=== PATIENT | female | born 1950 | race Caucasian/White ===

== ENCOUNTER → 2016-05-01 | Outpatient (CLI) | payer OTHER ==
[~2016-05-01] MED LIST: ASPI81TA28 PO; CHOL100010 PO; LSN/10125 PO; MULT-506 PO; VITACAP26 PO
[2016-05-01 12:49] LABS: BLOOD UREA NITROGEN 15 mg/dl (7-18); BUN/CREATININE RATIO 18.8 (10-20); CALCIUM 9.1 mg/dl (8.5-10.1); CARBON DIOXIDE 27 mmol/L (21-32); CHLORIDE 105 mmol/L (98-107); GLUCOSE 93 mg/dl (70-99); POTASSIUM 3.8 mmol/L (3.5-5.1); SODIUM 139 mmol/L (136-145)
== END | disposition home or self-care (01) ==
LOC: C.LAB1850 11:00
PROVIDERS: ATTEND Internal Medicine
DX: Z00.00 Encounter for general adult medical examination without abnormal findings (principal); Z11.59 Encounter for screening for other viral diseases; I10 Essential (primary) hypertension

== ENCOUNTER → 2016-05-28 | Outpatient (CLI) | payer OTHER ==
--- NOTE | 2016-05-28 16:38 | MAMMOGRAPHY REPORT ---
BILATERAL DIGITAL SCREENING MAMMOGRAM TOMOSYNTHESIS WITH CAD: 05/28/2016 CLINICAL HISTORY: Routine screening evaluation. At the time of this exam, the patient reported a sm all itchy red area medial to the right nipple for 2 months, to our lead cytogenetic technologist. TECHNIQUE: Bilateral breast tomosynthesis in addition to standard 2D mammography was performed. Curr ent study was also evaluated with a Computer Aided Detection (CAD) system. COMPARISON: Comparison is made to exams dated: 12/12/2015 mammogram, 06/07/2015 mammogram, 05/26/2015 mammogram, 02/16/2014 mammogram - [facility], and 05/30/2012 mammogram. BREAST COMPOSITION: There are scattered areas of fibroglandular density in both breasts. FINDINGS: There are diffuse bilateral round and punctate microcalcifications, which are stable nuvia red to prior exams. There are also clusters of faint punctate microcalcifications in the upper oute r anterior right breast and upper outer posterior right breast that appear stable based on the full field views dating back to 2015, and the anterior cluster of microcalcifications does not appear sig nificantly changed based on the spot magnification views dating back to 05/23/2009, therefore most l ikely benign. No new suspicious mass, architectural distortion or cluster of microcalcifications is seen bilaterally. IMPRESSION: ACR BI-RADS CATEGORY 1: NEGATIVE 1. Stable bilateral mammograms, without mammographic evidence of malignancy. A 1 year screening radha mogram is recommended. 2. Clinical follow-up is recommended for the reported itchy red lesion near the right nipple, which the patient reported at the time of the exam. The patient will receive written notification of the results. Approximately 10% of breast cancers are not detected with mammography. A negative mammographic repor t should not delay biopsy if a clinically suggestive mass is present. Stefany Murry M.D. ay/:05/28/2016 15:42:55 Vest Front Presser: Sarah HOBBS)(Bob), [facility] letter sent: Normal 1/2 BI-RADS Code: ACR BI-RADS Category 1: Negative
== END | disposition home or self-care (01) ==
LOC: C.MAMM 13:49
PROVIDERS: ATTEND Obstetrics & Gynecology
DX: Z12.31 Encounter for screening mammogram for malignant neoplasm of breast (principal)

== ENCOUNTER → 2016-09-12 | Outpatient (CLI) | payer OTHER | END | disposition home or self-care (01) | LOC: C.PAPS 17:17 | PROVIDERS: ATTEND Obstetrics & Gynecology | DX: Z12.4 Encounter for screening for malignant neoplasm of cervix (principal) ==

== ENCOUNTER → 2017-01-10 | Outpatient (CLI) | payer OTHER ==
[2017-01-10 10:10] LABS: ALT/SGPT 29 U/L (12-78); AST/SGOT 17 U/L (15-37); BLOOD UREA NITROGEN 16 mg/dl (7-18); BUN/CREATININE RATIO 22.4 (10-20); CARBON DIOXIDE 23 mmol/L (21-32); CHLORIDE 107 mmol/L (98-107); CREATININE 0.74 mg/dl (0.60-1.20); GLUCOSE 109 mg/dl (70-99); HDL CHOLESTEROL 34 mg/dl; SODIUM 138 mmol/L (136-145)
[2017-01-10 10:12] LABS: ALB/GLOB RATIO 0.9 (0.9-2); ALKALINE PHOSPHATASE 96 U/L (45-117); CHOLESTEROL 195 mg/dl (0-200); CHOLESTEROL/HDL RATIO 5.7; LDL CHOLESTEROL CALCULATED 130 mg/dl; TRIGLYCERIDES 157 mg/dl (0-150); VERY LOW DENSITY LIPOPROT CALC 31 mg/dl
== END | disposition home or self-care (01) ==
LOC: C.LAB1850 08:01
PROVIDERS: ATTEND Internal Medicine
DX: I10 Essential (primary) hypertension (principal)

== ENCOUNTER → 2017-05-07 | Outpatient (CLI) | payer OTHER ==
[2017-05-07 10:29] LABS: HEMOGLOBIN A1C 5.7 % (4.5-5.6)
[2017-05-07 10:44] LABS: BLOOD UREA NITROGEN 18 mg/dl (7-18); CALCIUM 9.5 mg/dl (8.5-10.1); CARBON DIOXIDE 23 mmol/L (21-32); CREATININE 0.77 mg/dl (0.60-1.20); GLUCOSE 108 mg/dl (70-99); SODIUM 139 mmol/L (136-145)
== END | disposition home or self-care (01) ==
LOC: C.LAB1850 09:08
PROVIDERS: ATTEND Internal Medicine
DX: I10 Essential (primary) hypertension (principal); R73.01 Impaired fasting glucose

== ENCOUNTER → 2017-07-16 | Outpatient (CLI) | payer OTHER ==
--- NOTE | 2017-07-17 14:20 | MAMMOGRAPHY REPORT ---
BILATERAL DIGITAL SCREENING MAMMOGRAM TOMOSYNTHESIS WITH CAD: 07/16/2017 CLINICAL HISTORY: Routine screening. Patient has no complaints. TECHNIQUE: Breast tomosynthesis in addition to standard 2D mammography was performed. Current study was also evaluated with a Computer Aided Detection (CAD) system. COMPARISON: Comparison is made to exams dated: 05/28/2016 mammogram, 12/12/2015 mammogram, 06/07/2015 m ammogram, 05/26/2015 mammogram, 02/16/2014 mammogram - [facility], and 05/30/2012 mamm ogram. BREAST COMPOSITION: There are scattered areas of fibroglandular density in both breasts. FINDINGS: There is a 6 mm focal asymmetry in the upper outer posterior right breast, for which addit ional spot compression tomosynthesis views and possible ultrasound are recommended. There are stable faint grouped punctate microcalcifications in the anterior right breast and other sc attered stable benign-appearing round and punctate microcalcifications bilaterally. No other suspici ous mass, architectural distortion or cluster of microcalcifications is seen. IMPRESSION: ACR BI-RADS CATEGORY 0: INCOMPLETE EVALUATION: NEED ADDITIONAL IMAGING EVALUATION The 6 mm focal asymmetry in the upper outer posterior right breast needs additional evaluation. The patient will be called to schedule an appointment. Approximately 10% of breast cancers are not detected with mammography. A negative mammographic report should not delay biopsy if a clinically suggestive mass is present. Stefany Murry M.D. ay/:07/16/2017 16:42:10 Motion Picture Photographer: Leana LINDSAY(Tyson)(Bob), [facility] letter sent: Addl Imaging 0 BI-RADS Code: ACR BI-RADS Category 0: Incomplete Evaluation: Need Additional Imaging Evaluation
== END | disposition home or self-care (01) ==
LOC: C.MAMM 09:23
PROVIDERS: ATTEND Obstetrics & Gynecology
DX: Z12.31 Encounter for screening mammogram for malignant neoplasm of breast (principal); N64.89 Other specified disorders of breast

== ENCOUNTER 2020-04-08 11:21 | Observation (INO) ==
--- NOTE | 2020-04-08 12:11 | Emergency Department Note ---
History of Present Illness General Chief complaint: Cardiac Assessment Stated complaint: DOC SENT EKG ABNORMAL LOW HEART RATE Time Seen by Provider: 04/08/20 11:51 Source: patient Mode of arrival: ambulatory Limitations: no limitations History of Present Illness Provider complaint: Fatigue, dyspnea with exertion, low heart rate Onset (ago): week(s) 1 Pain Consistency: + intermittent Exacerbated By: + movement Associated symptoms: + malaise and + shortness of breath; no chest pain, no fever/chills, no nausea/vomiting and no syncope This is a 69-year-old female presents to the emergency department after being referred from her doctor's office due to an abnormal EKG. Patient found to be significantly bradycardic with concern for possible heart block. Patient states over the course of the last week she had noticed that she was more winded with any exertion and more fatigued than usual. Patient states she originally called the doctor's office last weekend for an evaluation however they were concerned about Covid and required her to have a negative Covid test before they would see her in the office. Patient states she was monitoring her heart rate and blood pressure at home, and found that her heart rate was frequently down in the 40s. Patient denies any prior cardiac history, and no prior cardiac evaluation. Patient does not routinely see cardiology. Patient states she takes lisinopril and HCTZ for blood pressure, denies any use of beta-blockers or calcium channel blockers. Patient denies any other recent illness or change in diet or activity. Patient denies any prior history of palpitations or irregular heartbeat. Patient states she is still taking medication related to a prior diagnosis of breast cancer following her lumpectomy. Pt seen during a time of high acuity and national emergency pandemic while wearing PPE. Home Medications Medication Instructions Recorded Confirmed Type anastrozole 1 mg tablet 1 mg PO QAM 01/03/18 04/08/20 History calcium carbonate-vitamin D3 600 1 tab PO QAM tab 07/09/18 04/08/20 History mg(1,500 mg)-400 unit chewable tablet ascorbate calcium (vitamin C) 500 mg PO QAM 12/02/19 04/08/20 History aspirin [Adult Low Dose Aspirin] 81 mg PO QAM 12/02/19 04/08/20 History cholecalciferol (vitamin D3) 2,000 units PO QAM 12/02/19 04/08/20 History lisinopril-hydrochlorothiazide 1 tab PO QAM 12/02/19 04/08/20 History multivitamin with iron-mineral 1 tab PO QAM 12/02/19 04/08/20 History zinc 50 mg PO QAM 12/02/19 04/08/20 History Allergies Allergy/AdvReac Type Severity Reaction Status Date / Time amlodipine AdvReac Intermediate LE Verified 04/08/20 14:02 swelling Past Med/Surg History Medical History Cervical lymphadenopathy Dry cough Encounter for health maintenance examination Endometrial mass uterine fibroids History of kidney stones History of right breast cancer 2018 diagnosed--sx/radiation/oral chemo Hypertension Left humeral fracture Nausea and vomiting after administration of anesthetic agent Nephrolithiasis Osteoarthritis Patient on radiotherapy regimen Sigmoid diverticulum Thickened endometrium Surgical History H/O oral surgery dental implant History of colonoscopy History of lumpectomy of right breast 2018 History of repair of anterior cruciate ligament of right knee History of right breast biopsy malignant History of wisdom tooth extraction S/P dilation and curettage S/P tonsillectomy Family History Brother Hypertension Sister Hypertension Father Hypertension Family/Other Hypertension Other No family history of adverse response to anesthesia Denies family history of Ovarian cancer Myocardial infarction Breast cancer Colorectal cancer Social History Smoking Status: Never smoker Second Hand Exposure: No; Hx Alcohol Use: Yes Alcohol type: beer and wine Alcohol Intake Frequency: 2-4 x/Month Hx Substance Use: No Preferred Language: Hungarian Communication Ability: Effective Visual Impairment: No Limitations Hearing Ability: Normal Parking Supervisor Required: No Beliefs That Will Affect Care: None marital status: Current Living Situation: Spouse 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 and A total of 10 systems reviewed and were otherwise negative Physical Exam Vital Signs Vital Signs - 24 hr 04/08/20 11:28 04/08/20 11:39 Temperature 36.2 C L Temperature Source Temporal Artery Scan Pulse Rate 43 L Pulse Rhythm Regular Pulse Strength Normal Respiratory Rate 20 Respiratory Effort / Characteristics Non-Labored Spontaneous Respiratory Depth Normal Respiratory Pattern Regular Blood Pressure 148/72 H Blood Pressure Mean 97 Blood Pressure Position Sitting Pulse Oximetry 95 98 Oxygen Delivery Method Room Air Room Air Sepsis Recent Fever Within 48 Hours No Sepsis New/Unexplained Change in Mental Status No Sepsis Action Taken by Nursing No Action Required GENERAL: alert, well appearing, well nourished, no distress, non-toxic EYE EXAM: normal conjunctiva, PERRL and EOM's grossly intact OROPHARYNX: no exudate, no erythema, lips, buccal mucosa, and tongue normal and mucous membranes are moist NECK: supple, no nuchal rigidity, no adenopathy, non-tender LUNGS: Clear to auscultation. Normal chest wall mechanics, no w/r/r HEART: no murmurs, S1 normal and S2 normal ABDOMEN: abdomen soft, non-tender, normo-active bowel sounds, no masses, no rebound or guarding. BACK: Back is symmetrical on inspection and there is no deformity, no midline tenderness, no CVA tenderness. SKIN: no rashes and no bruising UPPER EXTREMITIES: upper extremities are grossly normal. FROM, nml pulses b/l. LOWER EXTREMITIES: No pitting edema. FROM, nml pulses b/l. NEURO EXAM: Normal sensorium, cranial nerves II-XII grossly intact, normal sp eech, no gross weakness of arms, no gross weakness of legs. Gross sensation intact. Course Course 1207: Case discussed with Dr. Abarca who is in the emergency department evaluating another patient as well as Dr. Conner. Dr. Abarca was aware that this patient was being sent in from the office. 1250: Pt stable, being evaluated by Dr. Conner. Repeat EKG shown to Dr. Abarca given HR 44 and appearance of 3rd degree heart block. 1311: Pt evalutaed by Dr. Abarca. Administered Medications Discontinued Medications Acetaminophen (Acetaminophen 325 Mg Tab) 650 mg PO Q4H PRN PRN Reason: Mild pain (rating 1,2,3) Stop: 05/08/20 17:41 Last Admin: 04/09/20 03:13 Dose: 650 mg Documented by: [id number] Admin: 04/08/20 20:34 Dose: 650 mg Documented by: [id number] Anastrozole (Anastrozole 1 Mg Tab) [address] [facility] Stop: 05/09/20 08:59 Last Admin: 04/09/20 09:25 Dose: 1 mg Documented by: [id number] Cosigned by: [id number] Aspirin (Aspirin 81 Mg Ectab) [address] [facility] Stop: 05/09/20 08:59 Last Admin: 04/09/20 09:25 Dose: 81 mg Documented by: [id number] Bacitracin (Bacitracin Inj 50,000 Unit Vial) Confirm Administered Dose 50,000 units .ROUTE .STK-MED ONE Stop: 04/08/20 16:37 Last Admin: 04/08/20 17:31 Dose: 50,000 units Documented by: [id number] Bacitracin (Bacitracin Inj 50,000 Unit Vial) Confirm Administered Dose 50,000 units .ROUTE .STK-MED ONE Stop: 04/08/20 16:40 Last Admin: 04/08/20 17:43 Dose: 50,000 units Documented by: [id number] Bacitracin (Bacitracin Oint 0.9 Gm Pkt) Confirm Administered Dose 1 appln .ROUTE .STK-MED ONE Stop: 04/08/20 17:30 Last Admin: 04/08/20 17:43 Dose: 1 appln Documented by: [id number] Cefazolin Sodium (Cefazolin 250 Mg/Ml 1 Gm Vial) 2,000 mg IV [email or web address]; Protocol Stop: 04/08/20 19:00 Last Admin: 04/08/20 17:31 Dose: 2,000 mg Documented by: [id number] Cefazolin Sodium (Cefazolin 250 Mg/Ml 1 Gm Vial) Confirm Administered Dose 2,000 mg .ROUTE .STK-MED ONE Stop: 04/08/20 16:11 Last Admin: 04/08/20 17:31 Dose: Not Given Documented by: [id number] Fentanyl Citrate (Fentanyl Citrate 100 Mcg/2 Ml Vial) Confirm Administered Dose 100 mcg .ROUTE .STK-MED ONE Stop: 04/08/20 16:11 Last Admin: 04/08/20 17:31 Dose: 100 mcg Documented by: [id number] Heparin Sodium (Porcine) (Heparin Sod 5,000 Unit/0.5 Ml Vial) 5,000 units SQ Q12 [facility] Stop: 05/08/20 20:59 Last Admin: 04/09/20 09:25 Dose: 5,000 units Documented by: [id number] Admin: 04/08/20 21:14 Dose: 5,000 units Documented by: [id number] Sodium Chloride (Nss 1000ml) 1,000 mls @ 125 mls/hr IV .Q8H [facility] Stop: 05/08/20 12:14 Last Infusion: 04/08/20 16:00 Dose: 0 mls/hr Documented by: [id number] Admin: 04/08/20 12:08 Dose: 125 mls/hr Documented by: [id number] Lactated Ringer's (Lr) 1,000 mls @ 15 mls/hr IV .Q24H [facility] Stop: 04/11/20 08:39 Last Admin: 04/08/20 18:24 Dose: Not Given Documented by: [id number] Lidocaine HCl (Lidocaine Hcl 1% 20 Ml Vial) Confirm Administered Dose 40 ml .ROUTE .STK-MED [facility] Stop: 04/08/20 16:37 Last Admin: 04/08/20 17:43 Dose: 40 ml Documented by: [id number] Midazolam HCl (Midazolam Hcl 5 Mg/Ml 1 Ml Vial) Confirm Administered Dose 5 mg .ROUTE .STK-MED ONE Stop: 04/08/20 16:11 Last Admin: 04/08/20 17:31 Dose: 5 mg Documented by: [id number] Multivitamins (Multivitamin Tab) 1 tab PO QAM [facility] Stop: 05/09/20 08:59 Last Admin: 04/09/20 09:25 Dose: 1 tab Documented by: [id number] Critical Care Time Critical Care Time: Yes Total Critical Care Time: 35 Critical care of 35 min performed to assess and manage high likelihood of life- threatening dyrhythmia, involving labs and imaging performed with assessment to evaluate dysrhythmia diagnosis with frequent reassessment. This time includes bedside time, treatment discussions with patient/family/consultants, do cumentation time and excludes procedure time. Medical Decision Making Differential Diagnosis Differential diagnoses includes but is not limited to pneumonia, bronchitis, COPD/Asthma exacerbation, pneumothorax, pulmonary embolism, congestive heart failure, acute coronary syndrome Medical Records Attestation: I reviewed the patient's medical records. Home Medications Current Medication List: was personally reviewed by me Laboratory Data Attestation: I reviewed the patient's lab results. Result diagrams: 04/08/20 11:42 04/09/20 06:08 Lab Results 04/08/20 04/08/20 04/08/20 Range/Units 11:42 11:42 11:42 WBC 13.46 H (4.8-10.8) K/uL RBC 4.71 (4.2-5.4) M/uL Hgb 14.4 (12.0-16.0) g/dL Hct 42.4 (37-47) % MCV 90.0 (80-100) fL MCH 30.6 (25-34) pg MCHC 34.0 (32-36) g/dL RDW Std Deviation 42.5 (36.4-46.3) fL RDW Coeff of Shamika 13.0 (11.5-14.5) % Plt Count 260 (130-400) K/uL MPV 11.1 H (7.4-10.4) fL Immature Gran % (Auto) 0.6 % Neut % (Auto) 75.4 % Lymph % (Auto) 14.6 % [place] % (Auto) 8.1 % Eos % (Auto) 1.1 % Baso % (Auto) 0.2 % Neut # (Auto) 10.15 H (1.4-6.5) K/uL Lymph # (Auto) 1.96 (1.2-3.4) K/uL [place] # (Auto) 1.09 H (0.11-0.59) K/uL Eos # (Auto) 0.15 (0-0.5) K/uL Baso # (Auto) 0.03 (0-0.2) K/uL Immature Gran # (Auto) 0.08 H (0.00-0.02) K/uL PT 10.3 (9.0-12.0) Seconds INR 1.0 (0.9-1.1) Sodium 140 (136-145) mmol/L Potassium 4.1 (3.5-5.1) mmol/L Chloride 107 (98-107) mmol/L Carbon Dioxide 23 (21-32) mmol/L Anion Gap 9.0 (3-11) BUN 19 H (7-18) mg/dl Creatinine 1.00 (0.6-1.2) mg/dl Est Cr Clr Drug Dosing 59.2 ml/min Est GFR ( Amer) 67.5 Est GFR (Non-Af Amer) 58.3 BUN/Creatinine Ratio 19.2 (10-20) Glucose 123 H (70-99) mg/dl Calcium 9.7 (8.5-10.1) mg/dl Magnesium 2.3 (1.8-2.4) mg/dl Total Bilirubin 0.4 (0.2-1) mg/dl AST 27 (15-37) U/L ALT 60 (12-78) U/L Alkaline Phosphatase 116 (45-117) U/L Troponin I 0.024 (0-0.045) ng/ml NT-Pro-B Natriuret Pep 2105 H (0-900) pg/ml Total Protein 7.8 (6.4-8.2) gm/dl Albumin 3.9 (3.4-5.0) gm/dl Globulin 3.9 (2.5-4.0) gm/dl Albumin/Globulin Ratio 1.0 (0.9-2) TSH 2.070 (0.300-4.500) uIu/ml Specimen Hemolysis Lyme Disease IgG Ab (Negative) Lyme Disease IgM Ab (Negative) COVID-19 Eval Order SARS-CoV-2, RNA, NAAT (NEGATIVE) 04/08/20 04/08/20 04/08/20 Range/Units 11:42 12:43 12:43 WBC (4.8-10.8) K/uL RBC (4.2-5.4) M/uL Hgb (12.0-16.0) g/dL Hct (37-47) % MCV (80-100) fL MCH (25-34) pg MCHC (32-36) g/dL RDW Std Deviation (36.4-46.3) fL RDW Coeff of Shamika (11.5-14.5) % Plt Count (130-400) K/uL MPV (7.4-10.4) fL Immature Gran % (Auto) % Neut % (Auto) % Lymph % (Auto) % [place] % (Auto) % Eos % (Auto) % Baso % (Auto) % Neut # (Auto) (1.4-6.5) K/uL Lymph # (Auto) (1.2-3.4) K/uL [place] # (Auto) (0.11-0.59) K/uL Eos # (Auto) (0-0.5) K/uL Baso # (Auto) (0-0.2) K/uL Immature Gran # (Auto) (0.00-0.02) K/uL PT (9.0-12.0) Seconds INR (0.9-1.1) Sodium (136-145) mmol/L Potassium (3.5-5.1) mmol/L Chloride (98-107) mmol/L Carbon Dioxide (21-32) mmol/L Anion Gap (3-11) BUN (7-18) mg/dl Creatinine (0.6-1.2) mg/dl Est Cr Clr Drug Dosing ml/min Est GFR ( Amer) Est GFR (Non-Af Amer) BUN/Creatinine Ratio (10-20) Glucose (70-99) mg/dl Calcium (8.5-10.1) mg/dl Magnesium (1.8-2.4) mg/dl Total Bilirubin (0.2-1) mg/dl AST (15-37) U/L ALT (12-78) U/L Alkaline Phosphatase (45-117) U/L Troponin I (0-0.045) ng/ml NT-Pro-B Natriuret Pep (0-900) pg/ml Total Protein (6.4-8.2) gm/dl Albumin (3.4-5.0) gm/dl Globulin (2.5-4.0) gm/dl Albumin/Globulin Ratio (0.9-2) TSH (0.300-4.500) uIu/ml Specimen Hemolysis Lyme Disease IgG Ab Negative (Negative) Lyme Disease IgM Ab Negative (Negative) COVID-19 Eval Order Covid19 [email or web address] SARS-CoV-2, RNA, NAAT NEGATIVE (NEGATIVE) ECG Data Attestation: I personally reviewed and interpreted this ECG as follows: Indication: + SOB/dyspnea Rate (beats per minute): 72 ECG Intervals/blocks: + Complete heart block, + Normal QRS and + Normal QT ECG ST segments: + Nonspecific ST abnormalities ECG Findings: + PVCs Blood Pressure Blood Pressure Findings: Elevated blood pressure Blood Pressure Disposition: further management by hospitalist MDM Narrative This is a 69 yo sent in for evaluation after having increased SOB, dizziness, and fatigue over the last week and finally able to be seen by her PCP. After she had an abnormal EKG in the office she was sent to the ER. Outpatient ekg's suggestive of completely heart block, initial ER ekg with higher rate and different appearance. Case discussed with cardiology and reviewed EKG's with them after initial evaluation. BP stable. Pt asymptomatic at rest. Labs drawn and sent. Hospitalist also made aware. Repeat EKG more similar to outpt and shows complete heart block. Pt made aware of all results and need for urgent cardiology evaluation. I do not suspect infectious etiology or acute metabolic derangement at this time. An order was placed for continuous cardiac monitoring. The monitor shows a rate of _44_ with _completely heart block_ rhythm. Impression & Plan LAGUNAS (dyspnea on exertion), Dizziness, CHB (complete heart block) Discharge Plan Visit Data Chief Complaint: Cardiac Assessment Stated Complaint: DOC SENT EKG ABNORMAL LOW HEART RATE ED Provider: Donna Bajwa Discharge Problem: [place]S (dyspnea on exertion), Dizziness, CHB (complete heart block) Patient Disposition: Admitted As Inpatient Discharge Instructions Interventions: ED Discharge Assessment Last Done: 04/08/20 15:35
[2020-04-08] MEDS ORDERED: SODIUM CHLORIDE 0.9% 1000ML 1,000 ML IV SCH (12:15)
[2020-04-08 12:16] LABS: Basophils # (auto) 0.03 K/uL (0-0.2); Basophils % (auto) 0.2 %; Eosinophils # (auto) 0.15 K/uL (0-0.5); Eosinophils % (auto) 1.1 %; Hematocrit (blood only) 42.4 % (37-47); Hemoglobin 14.4 g/dL (12.0-16.0); Immature Granulocytes # (auto) 0.08 K/uL (0.00-0.02); Immature Granulocytes % (auto) 0.6 %; Lymphocytes # (auto) 1.96 K/uL (1.2-3.4); Lymphocytes % (auto) 14.6 %; Mean Corpuscular Hemoglobin 30.6 pg (25-34); Mean Platelet Volume 11.1 fL (7.4-10.4); Monocytes # (auto) 1.09 K/uL (0.11-0.59); Monocytes % (auto) 8.1 %; Neutrophils # (auto) 10.15 K/uL (1.4-6.5); Neutrophils % (auto) 75.4 %; Platelet Count 260 K/uL (130-400); RDW Standard Deviation 42.5 fL (36.4-46.3); Red Blood Count 4.71 M/uL (4.2-5.4); White Blood Count 13.46 K/uL (4.8-10.8)
--- NOTE | 2020-04-08 12:19 | History & Physical Report ---
Date of Service April 08, 2020 Assessment & Plan (1) Bradycardia: Patient has symptomatic bradycardia with dyspnea. Patient has a slow ventricular rate at times with bigeminy however it does look like she has occasional P waves without resultant QRS complexes so a type II heart block not appear to be Wenke Claude so we will call this Luis F 2 at this time. This is however being evaluated by electrophysiology. Patient has an echocardiogram pending as well as currently pending Lyme and TSH. Her last TSH was checked in June 2019 and was normal. (2) Malignant neoplasm of upper-outer quadrant of right breast in female, estrogen receptor positive: Patient is on anastrozole for continued treatment of her breast cancer there is no adverse drug reaction is for heart block listed for this medication (3) Hypertension: Typically on lisinopril hydrochlorothiazide these are held at this time it is unclear whether her blood pressure will be affected by her bradycardia. If need be we can add back lisinopril or another antihypertensive medication (4) Impaired fasting glucose: Impaired fasting glucose is listed as one of her problems she did have a hemoglobin A1c in June 2019 at 5.7 we will have her on a heart healthy diet and only employ glucose control if her glucoses are elevated on serology (5) DVT prophylaxis: Heparin is used for DVT prophylaxis in case procedure is warranted. Given the fact that she is a history of malignancy she is a slightly high risk for VTE History of Present Illness Primary Care Provider: Natasha Melchor MD 69-year-old female presents to the emergency department after being referred fr om her doctor's office due to an abnormal EKG. Patient found to be significantly bradycardic with concern for possible heart block. Patient states over the course of the last week she had noticed that she was more winded with any exertion and more fatigued than usual. Patient states she originally called the doctor's office last weekend for an evaluation however they were concerned about Covid and required her to have a negative Covid test before they would see her in the office. Covid test was negative 03/28/20. Patient states she was monitoring her heart rate and blood pressure at home, and found that her heart rate was frequently down in the 40s. Patient denies any prior cardiac history, and no prior cardiac evaluation. Patient does not routinely see cardiology. Patient states she takes lisinopril and HCTZ for blood pressure, denies any use of beta-blockers or calcium channel blockers. Patient denies any other recent illness or change in diet or activity. Patient denies any prior history of palpitations or irregular heartbeat. Patient states she is still taking medication related to a prior diagnosis of breast cancer following her lumpectomy, anastrozole, however heart block is not listed as possible adverse reaction for this medication Allergies Allergy/AdvReac Type Severity Reaction Status Date / Time amlodipine AdvReac Intermediate LE Verified 04/08/20 09:20 swelling Home Medications Medication Instructions Recorded Confirmed Type anastrozole 1 mg tablet 1 mg PO QAM 01/03/18 04/08/20 History calcium carbonate-vitamin D3 600 1 tab PO QAM tab 07/09/18 04/08/20 History mg(1,500 mg)-400 unit chewable tablet ibuprofen 200 mg capsule 200 mg PO Q6H PRN #90 cap 09/18/18 04/08/20 Rx ascorbate calcium (vitamin C) 500 mg PO QAM 12/02/19 04/08/20 History aspirin [Adult Low Dose Aspirin] 81 mg PO QAM 12/02/19 04/08/20 History cholecalciferol (vitamin D3) 2,000 units PO QAM 12/02/19 04/08/20 History lisinopril-hydrochlorothiazide 1 tab PO QAM 12/02/19 04/08/20 History multivitamin with iron-mineral 1 tab PO QAM 12/02/19 04/08/20 History zinc 50 mg PO QAM 12/02/19 04/08/20 History Past Med/Surg History Medical History Cervical lymphadenopathy Dry cough Encounter for health maintenance examination Endometrial mass uterine fibroids History of kidney stones History of right breast cancer 2018 diagnosed--sx/radiation/oral chemo Hypertension Left humeral fracture Nausea and vomiting after administration of anesthetic agent Nephrolithiasis Osteoarthritis Patient on radiotherapy regimen Sigmoid diverticulum Thickened endometrium Surgical History H/O oral surgery dental implant History of colonoscopy History of lumpectomy of right breast 2018 History of repair of anterior cruciate ligament of right knee History of right breast biopsy malignant History of wisdom tooth extraction S/P dilation and curettage S/P tonsillectomy Family History Brother Hypertension Sister Hypertension Father Hypertension Family/Other Hypertension Other No family history of adverse response to anesthesia Denies family history of Ovarian cancer Myocardial infarction Breast cancer Colorectal cancer Social History Smoking Status: Never smoker Second Hand Exposure: Yes (father/grandfather smoked); Hx Alcohol Use: Yes Alcohol type: beer and wine Alcohol Intake Frequency: 2-4 x/Month Hx Substance Use: No Preferred Language: Italian Communication Ability: Effective Visual Impairment: No Limitations Hearing Ability: Normal 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 Combination Required: No Beliefs That Will Affect Care: None marital status: Current Living Situation: Spouse current occupational status: retired 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 Feels Safe at Home: Yes Childhood Exposure to Second-Hand Smoke: Yes Dental Care, Regularly: Yes Physical Activity Frequency: 3-4 Times per Week Seatbelt Use: always Sunscreen Use: Yes Assistive Devices: Glasses Review of Systems Review of Systems: Mild distress and fatigue no headache, blurry or double vision no speech or swallowing issues no chest pain, pressure or palpitations exertional shortness of breath, non productive cough (maybe from krysta )or wheezes no abdominal pain, nausea or vomiting, diarrhea or constipation no dysuria, hematuria or frequency no focal joint pain mild le swelling no back pain, CVA tenderness or radicular pain no bruising, bleeding or rashes no focal signs of weakness or numbness or altered sensation no complaints of anxiety or depression.. Physical Exam Physical Exam: The patient appeared well nourished and normally developed. Vital signs as documented. Head exam is normocephalic atraumatic no scleral icterus Neck is without JVD, thyromegaly, or carotid bruits. Lungs are clear to auscultation, no focal loss of breath sounds Cardiac exam, bradycardic but regular.. No murmurs, rubs or gallops. Abdominal exam reveals normal bowel sounds, soft non tender, no masses Extremities are 1+ edematous bilaterally and both pedal pulses are present Neurologic exam is alert and oriented, no focal loss of strength or sensation Skin is without bruises or rashes Psychologically is without concerns for anxiety or depression Results & Data Results & Data ([facility]) Vital Signs (Past 12 Hours) Vital Signs Temp Pulse Resp BP Pulse Ox 04/08/20 11:39 98 04/08/20 11:28 97.2 F L 43 L 20 148/72 H 95 EKG shows what appears to be bigeminy with PVC after conducting QRS however ther e is a P wave without a conducted QRS after that subsequently appears to be possibly Mobitz 2 Code Status & VTE Plan VTE Prophylaxis Plan VTE Prophylaxis will be ordered: Yes PG Care Time/CCT Total # of Minutes Spent Total Time Spent with Patient: Total time spent is greater than 50% in coordination of care (as documented) at patient's floor/unit and/or counseling patient: Coding Level of Care Code 84528 Initial Inpt Care Lvl 3 Diagnoses Bradycardia R00.1 Malignant neoplasm of upper-outer quadrant of right breast in female, estrogen receptor positive C50.411; Z17.0 Hypertension I10 Impaired fasting glucose R73.01 DVT prophylaxis Z29.9
[2020-04-08 12:24] LABS: Prothrombin Time 10.3 Seconds (9.0-12.0)
[2020-04-08 12:44] LABS: Albumin Level 3.9 gm/dl (3.4-5.0); BUN Creatinine Ratio 19.2 (10-20); Calcium 9.7 mg/dl (8.5-10.1); Creatinine Clr Calc Pharmacy 59.2 ml/min; Est GFR (African American) 67.5; Est GFR (Non-African American) 58.3; Magnesium 2.3 mg/dl (1.8-2.4); Potassium 4.1 mmol/L (3.5-5.1)
[2020-04-08 13:01] LABS: Bilirubin,Total 0.4 mg/dl (0.2-1); Globulin 3.9 gm/dl (2.5-4.0); Thyroid Stimulating Hormone 2.07 uIu/ml (0.300-4.500); Total Protein 7.8 gm/dl (6.4-8.2); Troponin I 0.024 ng/ml (0-0.045)
[2020-04-08 13:07] LABS: Lyme Ab IgG w/WB Rflx Negative (Negative); Lyme Ab IgM w/WB Rflx Negative (Negative)
--- NOTE | 2020-04-08 13:56 | XRay Report ---
XR chest 1V portable CLINICAL HISTORY: Shortness of breath. COMPARISON STUDY: No previous studies for comparison. FINDINGS: Lung volumes are normal. No pneumothorax or pleural effusion is noted. There is mild cardio megaly. Moderate interstitial thickening is noted. This represents interstitial pulmonary edema. Ther e is apparent right infrahilar opacity. IMPRESSION: 1. Moderate interstitial pulmonary edema. 2. Possible right infrahilar opacity. This can be assessed on follow-up radiographs to ensure resolut ion. ACT 112: Negative or not required by law. Electronically signed by: Qamar Puga M.D. 04/08/2020 1:55 PM
--- NOTE | 2020-04-08 13:58 | Cardiology Consultation ---
Date of Consultation April 08, 2020 Assessment & Plan (1) SOBOE (shortness of breath on exertion): She has recently developed dyspnea on exertion, initially it was intermittent and over the last several days it has become consistent. She also checked her pulse rate over the last month or so and when she felt poorly her heart rate was 40, at other times it was higher but more recently it has been slow consistently. Her symptoms seem very clearly related to the slow heart rate. In addition her echocardiogram shows normal left ventricular function. (2) Complete heart block by electrocardiogram: She has complete heart block based on her electrocardiogram with a junctional escape rhythm. Her escape rhythm is in the low 40 bpm range, her sinus rhythm is around 100 bpm with A-V dissociation. She is on no medications to cause this and is most likely due to intrinsic AV kristen conduction disease. It is not likely His-Purkinje disease based on her narrow escape rhythm. She will need a pacemaker for her complete heart block. I discussed the indications, procedure, risks alternatives of pacemaker implantation with her and she understands and agrees to proceed. I also discussed conscious sedation with her and she agrees. History of Present Illness Reason for Consultation: Complete heart block History of Present Illness This is a 69-year-old woman who has a history of intermittent bradycardia for several months, it was not very noticeable to her but she would notice occasional episodes of fatigue and if she checked her pulse she was noted to be in the 40s. She did not have lightheadedness or dizziness. Over the last week the intermittent episodes have progressed to continued fatigue, still without presyncope or syncope, and she notes that her heart rate was maintained at around 40 bpm. She presented to her PCP who noted her to be bradycardic and in complete heart block therefore was referred to the emergency room. In the emergency room she continued to be in complete heart block. The time my evaluation she was feeling well in bed, she had not had lightheadedness, dizziness, presyncope or syncope and was alert and cooperative. She is on no medications to cause heart block. An electrocardiogram in the emergency room showed complete heart block with an atrial rate of around 100 bpm, A-V dissociation with a ventricular rate of 42 bpm which is probably a junctional rhythm. On telemetry this rhythm continued. She did have other electrocardiogram showing frequent premature ventricular beats. Laboratory studies were unrevealing as to a cause. An echocardiogram done in the emergency room showed preserved left ventricular function on my review at the bedside. Allergies Allergy/AdvReac Type Severity Reaction Status Date / Time amlodipine AdvReac Intermediate LE Verified 04/08/20 14:02 swelling Home Medications Medication Instructions Recorded Confirmed Type anastrozole 1 mg tablet 1 mg PO QAM 01/03/18 04/11/20 History calcium carbonate-vitamin D3 600 1 tab PO QAM tab 07/09/18 04/11/20 History mg(1,500 mg)-400 unit chewable tablet ascorbate calcium (vitamin C) 500 mg PO QAM 12/02/19 04/11/20 History aspirin [Adult Low Dose Aspirin] 81 mg PO QAM 12/02/19 04/11/20 History cholecalciferol (vitamin D3) 2,000 units PO QAM 12/02/19 04/11/20 History lisinopril-hydrochlorothiazide 1 tab PO QAM 12/02/19 04/11/20 History multivitamin with iron-mineral 1 tab PO QAM 12/02/19 04/11/20 History zinc 50 mg PO QAM 12/02/19 04/11/20 History Patient History Medical History Cervical lymphadenopathy Dry cough Encounter for health maintenance examination Endometrial mass uterine fibroids History of kidney stones History of right breast cancer 2018 diagnosed--sx/radiation/oral chemo Hypertension Left humeral fracture Nausea and vomiting after administration of anesthetic agent Nephrolithiasis Osteoarthritis Patient on radiotherapy regimen Sigmoid diverticulum Thickened endometrium Surgical History H/O oral surgery dental implant History of colonoscopy History of lumpectomy of right breast 2018 History of repair of anterior cruciate ligament of right knee History of right breast biopsy malignant History of wisdom tooth extraction S/P dilation and curettage S/P tonsillectomy Family History Brother Hypertension Sister Hypertension Father Hypertension Family/Other Hypertension Other No family history of adverse response to anesthesia Denies family history of Ovarian cancer Myocardial infarction Breast cancer Colorectal cancer Social History Smoking Status: Never smoker Second Hand Exposure: No; Hx Alcohol Use: Yes Alcohol type: beer and wine Alcohol Intake Frequency: 2-4 x/Month Hx Substance Use: No Preferred Language: Kittitian Communication Ability: Effective Visual Impairment: No Limitations Hearing Ability: Normal Information Technology Consultant Required: No Beliefs That Will Affect Care: None marital status: Current Living Situation: Spouse current occupational status: retired 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 HEENT: Unremarkable Neck: No jugular venous distention, carotid pulses are normal and equal bilate rally without bruits. Pulmonary: Clear to auscultation bilaterally. Cardiac: Regular slow rhythm with no murmur, gallop or rub. Abdomen: Soft, nontender with normal bowel sounds. Extremities: No edema. Distal pulses intact. Neurologic: No focal findings. Gait is steady. Skin: No rash, ecchymoses or petechiae. Results & Data ([facility]) Vital Signs (Past 12 Hours) Vital Signs Temp Pulse Resp BP Pulse Ox 04/08/20 11:39 98 04/08/20 11:28 36.2 C L 43 L 20 148/72 H 95 Laboratory Results Cardiac Enzymes 04/08/20 Range/Units 11:42 AST 27 (15-37) U/L Troponin I 0.024 (0-0.045) ng/ml Coagulation 04/08/20 Range/Units 11:42 PT 10.3 (9.0-12.0) Seconds CBC 04/08/20 Range/Units 11:42 WBC 13.46 H (4.8-10.8) K/uL RBC 4.71 (4.2-5.4) M/uL Hgb 14.4 (12.0-16.0) g/dL Hct 42.4 (37-47) % Plt Count 260 (130-400) K/uL Neut # (Auto) 10.15 H (1.4-6.5) K/uL Lymph # (Auto) 1.96 (1.2-3.4) K/uL Esmeralda # (Auto) 1.09 H (0.11-0.59) K/uL Eos # (Auto) 0.15 (0-0.5) K/uL Baso # (Auto) 0.03 (0-0.2) K/uL Comprehensive Metabolic Panel 04/08/20 Range/Units 11:42 Sodium 140 (136-145) mmol/L Potassium 4.1 (3.5-5.1) mmol/L Chloride 107 (98-107) mmol/L Carbon Dioxide 23 (21-32) mmol/L BUN 19 H (7-18) mg/dl Creatinine 1.00 (0.6-1.2) mg/dl Glucose 123 H (70-99) mg/dl Calcium 9.7 (8.5-10.1) mg/dl AST 27 (15-37) U/L ALT 60 (12-78) U/L Alkaline Phosphatase 116 (45-117) U/L Total Protein 7.8 (6.4-8.2) gm/dl Albumin 3.9 (3.4-5.0) gm/dl Intake and Output 04/07/20 04/08/20 04/08/20 22:59 06:59 14:59 Other: Weight 89.7 kg Weight Measurement Method Chair Scale Patient Weight 04/09/20 06:59 Weight 89.7 kg Diagnostic Findings EC shows an unusual rhythm which might be a conducted beat followed by a premature ventricular beat followed by 2 blocked beats, other electrocardiogram show A-V dissociation with a junctional escape rhythm in the low 40s. Telemetry: High-grade to complete heart block throughout with a junctional escape rhythm. Echocardiogram: An echocardiogram was done and reviewed at bedside, overall her left ventricular function is excellent. PG Care Time/CCT Total # of Minutes Spent Total Time Spent with Patient: Total time spent is greater than 50% in coordination of care (as documented) at patient's floor/unit and/or counseling patient: Coding Level of Care Code 76230 Initial Inpt Care Lvl 3 Diagnoses SOBOE (shortness of breath on exertion) R06.02 Complete heart block by electrocardiogram I44.2
[2020-04-08] MEDS ORDERED: LACTATED RINGER'S 1,000 ML IV SCH (14:00)
--- NOTE | 2020-04-08 15:56 | XCELERA ---
[id number]
[2020-04-08] MEDS ORDERED: fentaNYL citrate 100 MCG/2 ML VIAL ONE (16:10)
[2020-04-08] MEDS ORDERED: MIDAZOLAM HCL 5 MG/ML 1 ML VIAL ONE (16:10)
--- NOTE | 2020-04-08 16:33 | Pre Anesthesia Assessment ---
Date of Service April 08, 2020 Pre Sedation Assessment Vital Signs Temp Pulse Resp BP Pulse Ox 04/08/20 15:35 39 L 16 146/66 H 92 04/08/20 15:00 44 L 21 91 04/08/20 14:40 40 L 18 90 04/08/20 14:30 58 L 14 142/63 H 91 04/08/20 14:20 41 L 18 90 04/08/20 14:00 42 L 17 91 04/08/20 13:41 180/79 H 92 04/08/20 13:40 87 L 04/08/20 13:32 42 L 22 153/67 H 92 04/08/20 13:20 41 L 17 91 04/08/20 13:00 40 L 19 170/74 H 93 04/08/20 12:40 46 L 14 94 04/08/20 12:30 41 L 19 148/67 H 94 04/08/20 12:20 42 L 18 95 04/08/20 12:12 59 L 21 93 04/08/20 12:00 52 L 13 142/73 H 94 04/08/20 11:39 98 04/08/20 11:28 36.2 C L 43 L 20 148/72 H 95 Cardiovascular + regular rhythm and + bradycardic Respiratory normal respiratory effort, lungs clear to auscultation no able to speak in complete sentences Pre-Sedation Airway Assessment Smoking Status: Never smoker Hx Sleep Apnea: No Short, Thick Neck: No Thyromental Distance: > or= 3.5 Finger Breadths Oral Cavity: + WNL Mallampati Class: III ASA: ASA3 NPO Status Date of Last Intake of Fluids: 04/08/20 Time of Last Intake of Fluids: 11:00 Date of Last Intake of Solid Food: 04/08/20 Time of Last Intake of Solid Foods: 07:30 Procedure Planning Contraindications for Sedation: none Current Medications Reviewed: Yes Notes The planned sedation has been discussed with the patient. Informed Consent was obtained. I have identified the patient, determined the appropriateness of sedation and have assessed the patient immediately prior to the procedure. All medicine(s) and interventions are by my order.
[2020-04-08] MEDS ORDERED: BACITRACIN INJ 50,000 UNIT VIAL ONE ×2 (16:36→16:39)
[2020-04-08] MEDS ORDERED: LIDOCAINE HCL 1% 20 ML VIAL ONE (16:36)
[2020-04-08] MEDS ORDERED: BACITRACIN OINT 0.9 GM PKT ONE (17:29)
[2020-04-08] MEDS ORDERED: KETOROLAC TROMETHAMINE 10 MG TABLET PO PRN (17:42)
--- NOTE | 2020-04-08 17:42 | Electrophysiology Report ---
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 The left prepectoral region was anesthetized with 1% lidocaine local anesthetic and left axillary venipuncture was performed by percutaneous technique and a guidewire placed through the left subclavian vein into the superior vena cava. The area was further infiltrated with 1% lidocaine local anesthetic and a 5 cm incision was made parallel to the left clavicle and 2 cm below it and carried down to the anterior pectoralis fascia. A pacemaker pocket was formed by blunt dissection anterior to the pectoralis fascia and a bacitracin-soaked sponge (50,000 units in 50 cc normal saline solution) was placed in the pocket. An 8 [place] Medtronic lead introducer was placed over the guidewire into the left subclavian vein, the dilator and guidewire were removed and a bipolar active fixation steroid tipped ventricular lead was advanced through the introducer into the superior vena cava. A guidewire was placed through the introducer and the introducer was stripped from the lead and guidewire. Another 8 [place] Medtronic lead introducer was placed over the guidewire into the left subclavian vein, the dilator and guidewire were removed and a bipolar active fixation steroid tipped atrial lead was advanced through the introducer into the superior vena cava. A guidewire was placed back through the introducer and the introducer was stripped from the lead and guidewire. Using a curved stylette the ventricular lead was advanced through the right ventricular outflow tract into the pulmonary artery and then using a straight stylette was positioned in the right ventricular apex. The screw was extended fixing the lead in position. Pacing and sensing thresholds were evaluated in bipolar configuration and are recorded on the implant data sheet. Using a curved stylette the atrial lead was positioned in the region of the atrial appendage and the screw extended fixing the lead in position. Pacing and sensing thresholds were evaluated in bipolar configuration and are recorded on the implant data sheet. Once the leads were in position they were attached to the anterior pectoralis fascia using 2 sutures of 2-0 silk around each lead collar. The bacitracin- soaked sponge was removed from the pocket, hemostasis was obtained, the pacemaker was attached to the leads and placed in the pocket with the leads coiled beneath it. The incision was closed with a running double subcutaneous closure of 3-0 Vicryl absorbable suture, followed by running subcuticular skin closure of 4-0 Vicryl absorbable suture. Bacitracin ointment was placed on the incision and a pressure dressing applied. [facility] [place] Electrophysiology codes Indication for Procedure (1) Complete heart block by electrocardiogram: Pacing Procedure 1: Pacin Insert/Replace Pacer A & V PG Moderate Sedation Codes Moderate Sedation Codes Procedure 1: Sedation/Anesthesia: 78811 Mod Sedation by the same physician;Init15 Min Child Age 5 & Up Procedure 2: Sedation/Anesthesia: 31334 Mod Sedation by the same physician; Ea [id number] Minutes
--- NOTE | 2020-04-08 18:16 | Electrocardiogram Report ---
Test Reason : Blood Pressure : / mmHG Vent. Rate : 042 BPM Atrial Rate : 046 BPM P-R Int : 000 ms QRS Dur : 108 ms QT Int : 554 ms P-R-T Axes : 053 -19 -50 degrees QTc Int : 462 ms Sinus bradycardia with A-V dissociation and Junctional bradycardia Inferior infarct (cited on or before 08-APR-2020) Anterior infarct (cited on or before 08-APR-2020) T wave abnormality, consider lateral ischemia Abnormal ECG When compared with ECG of 08-APR-2020 11:35, (unconfirmed) Junctional rhythm has replaced Sinus rhythm Vent. rate has decreased BY 30 BPM Confirmed by Keegan Ocampo ([id number]) on 04/08/2020 6:15:52 PM Referred By: REFERRED SELF Confirmed By:Keegan Ocampo
[2020-04-08] MEDS ORDERED: ACETAMINOPHEN 325 MG TAB PO PRN (18:19)
[2020-04-08] MEDS ORDERED: ONDANSETRON INJ 2 MG/ML 2 ML VIAL IV PRN (18:19)
[2020-04-08] MEDS ORDERED: ALUMINUM/MAGNESIUM SUSP 30 ML UDC PO PRN (18:19)
--- NOTE | 2020-04-08 18:22 | Electrocardiogram Report ---
Test Reason : Blood Pressure : / mmHG Vent. Rate : 072 BPM Atrial Rate : 072 BPM P-R Int : 166 ms QRS Dur : 104 ms QT Int : 458 ms P-R-T Axes : 045 085 -47 degrees QTc Int : 501 ms Poor data quality, interpretation may be adversely affected Sinus rhythm with frequent Premature ventricular complexes with high grade heart block Left atrial enlargement Inferior infarct , age undetermined Cannot rule out Anterior infarct , age undetermined Abnormal ECG No previous ECGs available Confirmed by Keegan Ocampo ([id number]) on 04/08/2020 6:22:15 PM Referred By: Confirmed By:Keegan Ocampo
--- NOTE | 2020-04-08 18:27 | Post Anesthesia Assessment ---
Date of Service April 08, 2020 Post Sedation Assessment Vital Signs Temp Pulse Resp BP Pulse Ox 04/08/20 17:47 138 H 04/08/20 15:35 39 L 16 146/66 H 92 04/08/20 15:00 44 L 21 91 04/08/20 14:40 40 L 18 90 04/08/20 14:30 58 L 14 142/63 H 91 04/08/20 14:20 41 L 18 90 04/08/20 14:00 42 L 17 91 04/08/20 13:41 180/79 H 92 04/08/20 13:40 87 L 04/08/20 13:32 42 L 22 153/67 H 92 04/08/20 13:20 41 L 17 91 04/08/20 13:00 40 L 19 170/74 H 93 04/08/20 12:40 46 L 14 94 04/08/20 12:30 41 L 19 148/67 H 94 04/08/20 12:20 42 L 18 95 04/08/20 12:12 59 L 21 93 04/08/20 12:00 52 L 13 142/73 H 94 04/08/20 11:39 98 04/08/20 11:28 36.2 C L 43 L 20 148/72 H 95 Recovery Score Activity: Moves 4 extremities Respiration: Deep Breath/Cough Circulation: +/-20% PreAnes Value Consciousness: Fully Awake Oxygen Saturation: > 92% On Room Air Post Anesthesia Score: 10 Discharge Sedation Level of Care: Fast Track Phase II Post Sedation Plan On clinical assessment, the patient appears to have tolerated the sedation without complications. Patient is recovering as anticipated. Patient will continue to be monitored by nursing and may be discharged when sedation discharge criteria are met per below protocol. Upon Completions of procedure up to 15 minutes continue every 5 minute vital signs and the P.A.R. score; then discharge to a Phase I or Fast Track to Phase II per the following guidelines: * Discharge Patient to appropriate Phase II area if PAR is 8 or greater or return to pre- procedure baseline. The post - procedure orders will be as directed. * If PAR score is less than 8 or not return to pre-procedure baseline then patient will follow Phase I monitoring till PAR is reached for Phase II. The Phase I may be done in procedure room or may call to secure a Phase I area. * If naloxone or flumazenil are used for reversal, hold in Phase I for mick nued monitoring from when last reversal dose was given for a minimum of 60 minutes or longer pending the nurse and/or physician discretion of patient condition before discharge to Phase II. Please call the Sedation Physician to re-evaluate and complete post-note for discharge to Phase II area. Do NOT discharge from procedure sedation or Phase 1 until post- sedation evaluation note is complete by procedure /sedation MD Sedation Discharge Instructions to be given to the patient at discharge to home.
[2020-04-08] MEDS: ACETAMINOPHEN 325 MG TAB PO PRN (20:34)
[2020-04-08] MEDS: HEPARIN SOD 5,000 UNIT/0.5 ML VIAL SQ SCH (21:14)
[2020-04-09] MEDS: ACETAMINOPHEN 325 MG TAB PO PRN (03:13)
[2020-04-09 07:32] LABS: BUN Creatinine Ratio 19.5 (10-20); Calcium 9.3 mg/dl (8.5-10.1); Est GFR (Non-African American) 69.9; Potassium 4.1 mmol/L (3.5-5.1)
[2020-04-09] MEDS ORDERED: INFLUENZA VACCINE HIGH DOSE 65+ 0.7 ML SYR IM ONE (08:00)
--- NOTE | 2020-04-09 08:19 | XRay Report ---
TWO VIEW CHEST CLINICAL HISTORY: Status post cardiac pacemaker implantation. FINDINGS: PA and lateral chest radiographs are compared to study dated 04/08/2020. A 2-lead cardiac pa cemaker has been placed and partially obscures the left upper chest. Leads project over the right atr ial appendage and the right ventricle. The heart is enlarged. Pulmonary vascular congestion has impro jae from previous. There is chronic interstitial thickening, as well as bibasilar scarring/atelectasi s. No airspace consolidation or large pleural effusion is identified. There is no pneumothorax. The s keletal structures are osteopenic. The bony thorax appears intact. IMPRESSION: 1. A 2-lead cardiac pacemaker has been placed as above. No pneumothorax is identified post procedure. 2. Cardiomegaly with pulmonary vascular congestion. This has improved as compared to 04/08/2020. Follo w-up to complete resolution is recommended. 3. No airspace consolidation or large pleural effusion is identified. ACT 112: Negative or not required by law. Electronically signed by: Gonzalo Reeves M.D. 04/09/2020 8:17 AM
[2020-04-09] MEDS ORDERED: ANASTROZOLE 1 MG TAB PO SCH (09:00)
[2020-04-09] MEDS ORDERED: MULTIVITAMIN TAB PO SCH (09:00)
[2020-04-09] MEDS ORDERED: ASPIRIN 81 MG ECTAB PO SCH (09:00)
[2020-04-09] MEDS: HEPARIN SOD 5,000 UNIT/0.5 ML VIAL SQ SCH (09:25)
--- NOTE | 2020-04-09 11:40 | Cardiology Progress Note ---
Date of Service April 09, 2020 Assessment & Plan (1) Status post placement of cardiac pacemaker: She is doing well postop day #1, the chest x-ray shows good lead position without any pneumothorax, her pacemaker measurements are excellent. She is stable for discharge from my standpoint. I will arrange follow-up on Saturday or Saturday in our office. Admission and Anticipated Discharge Date Admission Date: April 08, 2020 Results & Data ([facility]) Vital Signs (Past 12 Hours) Vital Signs Temp Pulse Resp BP Pulse Ox 04/09/20 07:38 36.8 C 72 18 136/78 94 04/09/20 03:43 36.9 C 79 18 144/78 H 93 04/09/20 00:05 36.9 C 79 18 150/75 H 95 Diagnostic Findings Cardiac Enzymes 04/08/20 Range/Units 11:42 AST 27 (15-37) U/L Troponin I 0.024 (0-0.045) ng/ml Coagulation 04/08/20 Range/Units 11:42 PT 10.3 (9.0-12.0) Seconds CBC 04/08/20 Range/Units 11:42 WBC 13.46 H (4.8-10.8) K/uL RBC 4.71 (4.2-5.4) M/uL Hgb 14.4 (12.0-16.0) g/dL Hct 42.4 (37-47) % Plt Count 260 (130-400) K/uL Neut # (Auto) 10.15 H (1.4-6.5) K/uL Lymph # (Auto) 1.96 (1.2-3.4) K/uL Sargent # (Auto) 1.09 H (0.11-0.59) K/uL Eos # (Auto) 0.15 (0-0.5) K/uL Baso # (Auto) 0.03 (0-0.2) K/uL Comprehensive Metabolic Panel 04/08/20 04/09/20 Range/Units 11:42 06:08 Sodium 140 140 (136-145) mmol/L Potassium 4.1 4.1 (3.5-5.1) mmol/L Chloride 107 109 H (98-107) mmol/L Carbon Dioxide 23 25 (21-32) mmol/L BUN 19 H 17 (7-18) mg/dl Creatinine 1.00 0.86 (0.6-1.2) mg/dl Glucose 123 H 104 H (70-99) mg/dl Calcium 9.7 9.3 (8.5-10.1) mg/dl AST 27 (15-37) U/L ALT 60 (12-78) U/L Alkaline Phosphatase 116 (45-117) U/L Total Protein 7.8 (6.4-8.2) gm/dl Albumin 3.9 (3.4-5.0) gm/dl Intake and Output 04/08/20 04/09/20 04/09/20 22:59 06:59 14:59 Intake Total 583.333 / 583.333 Output Total 350 / 350 Balance 233.333 / 233.333 Intake: IV 483.333 / 483.333 Nss 1000ML 1,000 ml @ 125 mls/ 483.333 / 483.333 hr IV .Q8H DONNY Rx#:[id number] Oral 100 / 100 Output: Urine 350 / 350 Other: # Unmeasured Voids 1 1 Weight 89.811 kg 90 kg Weight Measurement Method Built in Bedscale Built in [facility] Postop ECG: Atrial sensing and ventricular pacing throughout, normal operation Telemetry: Normal dual-chamber pacemaker operation Chest x-ray: Good lead position, no pneumothorax Pacemaker evaluation: Excellent pacing and sensing characteristics PG Care Time/CCT Total # of Minutes Spent Total Time Spent with Patient: Total time spent is greater than 50% in coordination of care (as documented) at patient's floor/unit and/or counseling patient: Coding Level of Care Code 96787 Post Operative Follow-Up Diagnoses Status post placement of cardiac pacemaker Z95.0 CPT Codes Dual Lead Pacemaker System - 37847 ([id number])
[2020-04-09 11:48] VITALS: BP 165/70; TEMP 98.8; O2SAT 97
[2020-04-09 14:29] VITALS: PULSE 79
--- NOTE | 2020-04-09 15:17 | Discharge Summary ---
Date of Service April 09, 2020 Principal Diagnosis Bradycardia s/p pacemaker Discharge Exam Constitutional WD/WN, vitals as above Eyes EOM intact bilaterally; no conjunctival abnormality ENMT external ear and nose normal, oropharynx normal Neck trachea midline, no thyromegaly normal visual inspection Respiratory normal respiratory effort, lungs clear to auscultation no respiratory distress Cardiovascular RRR, no murmur, no edema Chest (Breasts) Chest: + pacemaker (Clean incision site) Gastrointestinal (Abdomen) Inspection/Auscultation: abdomen normal to inspection; abdomen not distended Musculoskeletal no cyanosis or clubbing, extremities motor strength 5/5 Skin no rashes, warm and dry Neurologic moves all extremities and awake Psychiatric Orientation: alert, oriented to person and cooperative Discharge Data Allergies Allergy/AdvReac Type Severity Reaction Status Date / Time amlodipine AdvReac Intermediate LE Verified 04/08/20 14:02 swelling Consultations 04/08/20 12:06 ED Decision to Admit Stat 04/08/20 18:19 Consult Cardiology Routine Procedures Performed Operation Date: 04/08/20 15:30 Actual Procedures p Pacer with A/V Leads (Dual) - Billy Abarca MD Ordered Studies 04/08/20 16:14 CL Cath Imgs for PACS use only Stat Hospital Course (1) Bradycardia: Patient has symptomatic bradycardia with dyspnea. - S/p pacemaker by Dr. Abarca. Will plan for follow up next week. [place] very well. (2) Malignant neoplasm of upper-outer quadrant of right breast in female, estrogen receptor positive: Patient is on anastrozole for continued treatment of her breast cancer there is no adverse drug reaction is for heart block listed for this medication (3) Hypertension: Typically on lisinopril hydrochlorothiazide these are held at this time it is unclear whether her blood pressure will be affected by her bradycardia. If need be we can add back lisinopril or another antihypertensive medication (4) Impaired fasting glucose: Impaired fasting glucose is listed as one of her problems she did have a hemoglobin A1c in June 2019 at 5.7 we will have her on a heart healthy diet and only employ glucose control if her glucoses are elevated on serology (5) DVT prophylaxis: Heparin is used for DVT prophylaxis in case procedure is warranted. Given the fact that she is a history of malignancy she is a slightly high risk for VTE Total Time Total Time Spent Total Time Spent (In Minutes): 35 Discharge Plan Discharge Items Patient Disposition: Home - Self-Care Reason For Visit: DOC SENT EKG ABNORMAL LOW HEART RATE Discharge Diagnosis: Bradycardia (low heart rate) Activity: Resume your previous activity Lifting: No more than 5 pounds Lifting Comment: In left hand for 1 week. Bathing Comment: No soaking the incision area for 1 week. Showering is ok tomorrow (Saturday). Non-emergency contact: Duct Maker Call non-emergency contact if: your symptoms worsen Follow-up/Referrals: Billy Abarca MD [Physician] - 04/12/20 (Please keep your scheduled Saturday appointment.) Natasha Melchor MD [Primary Care Provider] - Diet: Regular Addtl Attending Provider Instructions: Ms. Huang, You were admitted to the hospital with a low heart rate (called bradycardia) which can happen when the connection between the top and bottom half of the heart stop communicating well. Dr. Abarca put in a pacemaker which helps replace the conduit for the top and bottom halves of the heart. Please do not lift your left arm over your shoulder for at least 2 weeks, or longer if Dr. Abarca instructs you to do so. Do not lift anything heavier than a gallon of milk in the left hand until Dr. Abarca clears you. Please follow up with Dr. Abarca at the Saturday appointment slot you already have. Pending Studies at Discharge: No Stand-Alone Forms: [facility], Sm[facility] Cessation Medications and DC Order Prescriptions: Continued anastrozole 1 mg tablet 1 mg PO QAM RF: 0 Calcium 600 with Vitamin D3 600 mg(1,500mg) -400 unit tablet,chewable 1 tab PO QAM RF: 0 aspirin [Adult Low Dose Aspirin] 81 mg tablet,delayed release (DR/EC) 81 mg PO QAM RF: 0 ascorbate calcium (vitamin C) 500 mg tablet 500 mg PO QAM RF: 0 lisinopril-hydrochlorothiazide 10-12.5 mg tablet 1 tab PO QAM RF: 0 multivitamin with iron-mineral tablet 1 tab PO QAM RF: 0 cholecalciferol (vitamin D3) 2,000 unit capsule 2,000 units PO QAM RF: 0 zinc 50 mg Tablet 50 mg PO QAM RF: 0 Discharge Orders: Discharge Order (Routine); Ordered 04/09/20 Ordered By: Bk Lambert Admission Data Admit Date/Time: 04/08/20 15:34 Attending Provider: Bk Lambert Admit Provider: Bk Lambert Primary Care Provider: Natasha Melchor V. Other Providers: Billy Abarca ; Bk Lambert Other Interventions: Discharge Summary Assessment (RN) Last Done: 04/09/20 14:27 Coding Level of Care Code 91547 OBS Care - Discharge Diagnoses Bradycardia R00.1 Malignant neoplasm of upper-outer quadrant of right breast in female, estrogen receptor positive C50.411; Z17.0 Hypertension I10 Impaired fasting glucose R73.01 DVT prophylaxis Z29.9
--- NOTE | 2020-04-10 05:57 | Electrocardiogram Report ---
Test Reason : Blood Pressure : / mmHG Vent. Rate : 043 BPM Atrial Rate : 097 BPM P-R Int : 000 ms QRS Dur : 136 ms QT Int : 594 ms P-R-T Axes : 059 053 -53 degrees QTc Int : 501 ms Sinus rhythm with A-V dissociation and Junctional bradycardia Low voltage QRS Inferior infarct (cited on or before 08-APR-2020) Cannot rule out Anterior infarct (cited on or before 08-APR-2020) Abnormal ECG When compared with ECG of 08-APR-2020 12:14, QRS duration has increased Confirmed by Edd Chau ([id number]) on 04/10/2020 5:57:24 AM Referred By: REFERRED SELF Confirmed By:Edd Chau
--- NOTE | 2020-04-10 06:25 | Electrocardiogram Report ---
Test Reason : Blood Pressure : / mmHG Vent. Rate : 082 BPM Atrial Rate : 082 BPM P-R Int : 206 ms QRS Dur : 158 ms QT Int : 464 ms P-R-T Axes : 073 -87 084 degrees QTc Int : 542 ms Atrial-sensed ventricular-paced rhythm Abnormal ECG When compared with ECG of 08-APR-2020 13:52, Ventricular pacing is now present Vent. rate has increased BY 39 BPM Confirmed by Edd Chau ([id number]) on 04/10/2020 6:25:33 AM Referred By: REFERRED SELF Confirmed By:Edd Chau
== END 2020-04-09 15:21 | disposition home or self-care (01) ==
LOC: ED 11:21 → EDINP 15:34 → SUATTDRO 15:34 → INTOOBSV 15:34 → 2S 15:35